=== PATIENT | female | born 1965 | race Caucasian/White ===

== ENCOUNTER 2018-11-15 07:25 | Day surgery (SDC) | payer OTHER ==
[2018-11-14 10:56] VITALS: BMI 27.3
[2018-11-15] MEDS ORDERED: MIDAZOLAM HCL 2 MG/2 ML SINGLE DOSE VIAL ONE (08:10)
[2018-11-15] MEDS ORDERED: PROPOFOL 20 ML ONE ×6 (08:10)
[2018-11-15] MEDS ORDERED: SUCCINYLCHOLINE CHLORIDE 200 MG/10 ML VIAL ONE (08:10)
[2018-11-15] MEDS ORDERED: ceFAZolin SODIUM 1 GM VIAL IVPB ONE (09:22)
[2018-11-15] MEDS ORDERED: KETOROLAC TROMETHAMINE 30 MG/1 ML VIAL IVPUSH PRN (10:00)
--- NOTE | 2018-11-15 10:04 | OP ---
Operative Note - Note: Operative Date: 11/15/18 Pre-Operative Diagnosis: PMB Operation: HYSTEROSCOPY. D&C Post-Operative Diagnosis: Same as Pre-op Anesthesia: General Specimens Removed: EMC Estimated Blood Loss (mls): 5 Operative Report Dictated: Yes
[2018-11-15] MEDS ORDERED: oxyCODONE HCL 5 MG TABLET PO PRN ×2 (10:10)
[2018-11-15] MEDS ORDERED: ONDANSETRON 4 MG/2 ML VIAL IVPUSH PRN (10:10)
[2018-11-15] MEDS ORDERED: LACTATED RINGERS SOLUTION 1,000 ML IV SCH (10:15)
[2018-11-15 10:51] VITALS: TEMP 97.7
[2018-11-15 11:28] VITALS: BP 128/67; PULSE 66
--- NOTE | 2018-11-16 08:38 | OP ---
DATE OF OPERATION: 11/15/2018 DATE OF DICTATION: 11/15/2018 PREOPERATIVE DIAGNOSIS: Postmenopausal bleeding. POSTOPERATIVE DIAGNOSIS: Postmenopausal bleeding. OPERATION: 1. Hysteroscopy. 2. Dilatation and curettage. SURGEON: Marlon Chu MD ANESTHESIA: General, LMA, Octavio Finney MD. PROCEDURE AND FINDINGS: Under general anesthesia patient was placed in dorsal lithotomy position and examined. Uterus was moderately enlarged, about 8 weeks' size, and irregular. There was marked descensus. Cystocele and enterocele were appreciated. Adnexa were within normal limits. Following routine prep and drape cervix was grasped with tenaculum. Hysteroscopy was carried out using saline as the distending medium. Irregular cavity with what seemed like an anterior myoma present was seen. Endocervix was within normal limits. Cervix was dilated. Using medium-sized curet sharp curettage was performed producing rather small amount of tissue. [place] forceps search for polyps was negative. Upon completion of the curettage cavity was empty. Post D & C hysteroscopy was within normal limits. The patient was awakened without difficulties. Estimated blood loss was 5 mL. She was transferred to PACU comfortable and stable. MD PEYMAN BRASWELL/[id number]
[2018-11-16] MEDS ORDERED: MULTIVITAMINS (DAILY MVI) TABLET (FP) PO SCH (10:00)
--- NOTE | 2018-11-16 10:59 | PATH ---
Surgical Pathology Report Patient Name: B[facility]ANY [facility]. Rec. #: [id number] /Age/Gender: 1965 (Age: 53) / F Account: [id number] Location: [facility] Taken: 11/15/2018 Received: 11/15/2018 Reported: 11/16/2018 Physicians: Marlon Chu MD Specimen(s) Received ENDOMETRIAL CURETTINGS Clinical History Postmenopausal bleeding Final Diagnosis ENDOMETRIAL CURETTINGS, DILATION AND CURETTAGE: WEAKLY PROLIFERATIVE ENDOMETRIUM WITH FOCAL SQUAMOUS METAPLASIA, SUPERFICIAL MYOMETRIUM, AND SCANT BENIGN CERVICAL TISSUE. Electronically Signed Alison Carnes M.D. Gross Description Received in formalin labeled "endometrial curettings" is a 2.8 x 2.5 x 0.3 cm aggregate of sibley-brown soft tissue fragments admixed with blood-tinged mucous. The formalin is filtered and the specimen is entirely submitted in one cassette. /11/15/201811/15/2018
== END 2018-11-15 11:10 | disposition home or self-care (01) ==
LOC: JASU-SURG 07:25
PROVIDERS: ATTEND Specialist
PROC: 0UDB7ZX Extraction of Endometrium, Via Natural or Artificial Opening, Diagnostic (ICD-10-PCS; principal; 2018-11-15 09:00)
PROC: 0UJD8ZZ Inspection of Uterus and Cervix, Via Natural or Artificial Opening Endoscopic (ICD-10-PCS; 2018-11-15 09:00)
DX: N95.0 Postmenopausal bleeding (principal)
CPT/HCPCS: 84703; 88305-TC; 94760